=== PATIENT | male | born 1980 | race Caucasian/White ===

== ENCOUNTER 2020-07-29 21:40 | Emergency (ER) | payer BC ==
[2020-07-29 22:06] VITALS: BP 161/106; PULSE 80
--- NOTE | 2020-07-29 22:19 | EDM.PDOC ---
ED HPI GENERAL MEDICAL PROBLEM - General Chief Complaint: ENT Problem Stated Complaint: WISDOM TOOTH REMOVED THROAT AND EAR PAIN Time Seen by Provider: 07/29/20 21:59 Source of Information: Reports: Patient History Limitations: Reports: No Limitations - History of Present Illness INITIAL COMMENTS - FREE TEXT/NARRATIVE: This is a 40-year-old male. He had to lower wisdom teeth and the right upper wisdom tooth removed last week. He was doing okay until last night when he developed lots of chilling and sweating and he developed pain in his left jaw area left ear and throat. He does not have any drainage that he can tell from his surgery and he denies any bad taste in his mouth but he does have a sore throat. He is not certain whether the surgical site is infected or if he is got strep throat. When he took his temp today apparently was about 101 and he still had some chills today as well. He comes to the ER for evaluation. He denies any nausea vomiting or diarrhea denies any cough or congestion. throat Pain Score (Numeric/FACES): 6 - Related Data Allergies Allergy/AdvReac Type Severity Reaction Status Date / Time tide Allergy Rash Uncoded 07/29/20 22:06 Home Meds: Home Meds Acetaminophen/HYDROcodone [[place] 325-5 MG] 1 tab PO Q4H PRN 07/29/20 [History] Hydrocodone/Acetaminophen [Hydrocodone-Acetamin 5-325 mg] 1 each PO Q6H PRN #12 tablet 07/29/20 [Rx] Penicillin V Potassium 500 mg PO Q8HR #21 tab 07/29/20 [Rx] Past Medical History - Past Health History Medical/Surgical History: Denies Medical/Surgical History Gastrointestinal History: Reports: Other (See Below) Other Gastrointestinal History: perianal abcess - Infectious Disease History Infectious Disease History: Reports: Chicken Pox - Past Surgical History Other GI Surgeries/Procedures: butt surgery times 3 Musculoskeletal Surgical History: Reports: Other (See Below) Other Musculoskeletal Surgeries/Procedures:: achilles tendon lengthening bilaterally Social & Family History - Family History Family Medical History: No Pertinent Family History - Tobacco Use Tobacco Use Status *Q: Never Tobacco User - Recreational Drug Use Recreational Drug Use: No ED ROS ENT - Review of Systems Review Of Systems: See Below Constitutional: Reports: Fever, Chills HEENT: Reports: Ear Pain, Throat Pain Respiratory: Denies: Shortness of Breath, Cough Cardiovascular: Denies: Chest Pain Endocrine: Reports: No Symptoms GI/Abdominal: Denies: Abdominal Pain, Nausea, Vomiting : Reports: No Symptoms Musculoskeletal: Reports: No Symptoms Skin: Reports: No Symptoms Neurological: Reports: No Symptoms Psychiatric: Reports: No Symptoms Hematologic/Lymphatic: Reports: No Symptoms ED EXAM, ENT - Physical Exam Exam: See Below Exam Limited By: No Limitations General Appearance: Alert, WD/WN, No Apparent Distress Eye Exam: Bilateral Eye: Normal Inspection Ears: Normal External Exam, Normal Canal, Normal TMs Nose: Normal Inspection Mouth/Throat: Normal Gums, Tonsillar Erythema, Other (The gums where the wisdom tooth were removed in the lower jaw does not appear to be inflamed or swollen I do not see any obvious drainage. The right upper wisdom tooth area appears to be without swelling or drainage.). No: Gum Swelling Head: Normocephalic, Other (When I compare his facial structure he does not appear to have any significant swelling on that left side of the jaw or around the ear area. It is mildly tender on palpation but not exquisitely so. He has some mild lymphadenopathy at the left angle of the jaw but not the right.) Neck: Supple Respiratory/Chest: No Respiratory Distress Back: Full Range of Motion Extremities: Normal Inspection, Normal Range of Motion Neurological: Alert, Oriented Psychiatric: Normal Affect, Normal Mood Skin: Warm, Dry Course - Vital Signs Last Recorded V/S: Last Vital Signs Temp 98.3 F 07/29/20 22:02 Pulse 80 07/29/20 22:02 Resp 18 07/29/20 22:02 BP 161/106 H 07/29/20 22:02 Pulse Ox 91 L 07/29/20 22:02 - Orders/Labs/Meds Orders: Active Orders 24 hr Category Date Time Status cefTRIAXone 1 GM with Lidocaine 1% 2.1 ML IM Med 07/29/20 23:15 Ordered cefTRIAXone [Rocephin] 1 gm Lidocaine 1% [Xylocaine 1%] 2.1 ml IM Q24H Labs: Laboratory Tests 07/29/20 07/29/20 Range/Units 22:20 22:30 WBC 11.64 H (4.23-9.07) K/mm3 RBC 5.05 (4.63-6.08) M/mm3 Hgb 15.2 (13.7-17.5) gm/dl Hct 44.5 (40.1-51.0) % MCV 88.1 (79.0-92.2) fl MCH 30.1 (25.7-32.2) pg MCHC 34.2 (32.2-35.5) g/dl RDW Std Deviation 42.5 (35.1-43.9) fL Plt Count 233 (163-337) K/mm3 MPV 9.4 (9.4-12.3) fl Neut % (Auto) 65.3 (34.0-67.9) % Lymph % (Auto) 18.7 L (21.8-53.1) % [place] % (Auto) 11.8 (5.3-12.2) % Eos % (Auto) 3.3 (0.8-7.0) Baso % (Auto) 0.3 (0.1-1.2) % Neut # (Auto) 7.61 H (1.78-5.38) K/mm3 Lymph # (Auto) 2.18 (1.32-3.57) K/mm3 [place] # (Auto) 1.37 H (0.30-0.82) K/mm3 Eos # (Auto) 0.38 (0.04-0.54) K/mm3 Baso # (Auto) 0.03 (0.01-0.08) K/mm3 Manual Slide Review Normal smear Group A Strep (PCR) Not detected (NOT DETECT) - Re-Assessments/Exams Free Text/Narrative Re-Assessment/Exam: 07/29/20 23:09 I spoke to the patient regarding the mildly elevated white count and the negative strep. He is going out for a Rocephin shot in the ER approach put him on some penicillin VK at home and give him something for pain. Departure - Departure Time of Disposition: 23:10 Disposition: Home, Self-Care 01 Condition: Good Clinical Impression: Dry tooth socket - Discharge Information *PRESCRIPTION DRUG MONITORING PROGRAM REVIEWED*: No *COPY OF PRESCRIPTION DRUG MONITORING REPORT IN PATIENT HSEREEN: No Prescriptions: Hydrocodone/Acetaminophen [Hydrocodone-Acetamin 5-325 mg] 1 each PO Q6H PRN #12 tablet PRN Reason: Pain Penicillin V Potassium 500 mg PO Q8HR #21 tab Instructions: Dental Dry Socket, [id number] Referrals: Bradley Aleman Jr, MD [Primary Care Provider] - Forms: ED Department Discharge Additional Instructions: Get the antibiotics and the pain medication filled tomorrow and start the antibiotics tomorrow evening, continue with liquids and try to avoid any foods that are hard or you have to chew a lot so stick to soft foods and fluids for the next few days, take some Tylenol or ibuprofen as needed for the fever, follow-up with your dentist later next week for recheck, return to the ER if needed Sepsis Event Note (ED) - Evaluation Sepsis Screening Result: No Definite Risk - Focused Exam Vital Signs: Vital Signs Temp Pulse Resp BP Pulse Ox 07/29/20 22:02 98.3 F 80 18 161/106 H 91 L - My Orders Last 24 Hours: My Active Orders 07/29/20 23:15 cefTRIAXone 1 GM with Lidocaine 1% 2.1 ML IM cefTRIAXone [Rocephin] 1 gm Lidocaine 1% [Xylocaine 1%] 2.1 ml IM Q24H - Assessment/Plan Last 24 Hours: My Active Orders 07/29/20 23:15 cefTRIAXone 1 GM with Lidocaine 1% 2.1 ML IM cefTRIAXone [Rocephin] 1 gm Lidocaine 1% [Xylocaine 1%] 2.1 ml IM Q24H
[2020-07-29] MEDS ORDERED: cefTRIAXone 1 GM, Lidocaine 1% 2.1 ML IM SCH ×2 (23:15)
== END 2020-07-29 23:26 | disposition home or self-care (01) ==
LOC: JD.ED 21:40
DX: M27.3 Alveolitis of jaws (principal); Z91.048 Other nonmedicinal substance allergy status
CPT/HCPCS: 36415; 85025; 87651; 96372; 99283; J0696

== ENCOUNTER 2023-02-18 11:30 | Day surgery (SDC) | payer BC ==
[~2023-02-18 11:30] MED LIST: Lidocaine 1% 5 ML VIAL ONE; Propofol 200 MG/20 ML SDV ONE; fentaNYL 100 MCG/2 ML SDV ONE
[2023-02-18] MEDS ORDERED: Lidocaine 1% 30 ML SDV ONE (11:43)
[2023-02-18] MEDS ORDERED: Bupivacaine 0.5% 30 ML SDV ONE (11:43)
[2023-02-18] MEDS ORDERED: Dexmedetomidine 200 MCG/2 ML SDV ONE (11:44)
[2023-02-18] MEDS ORDERED: EPINEPHrine 1 MG/ML 30 ML MDV IRR SCH (11:45)
[2023-02-18] MEDS ORDERED: EPINEPHrine 1 MG/ML SDV ONE (11:48)
[2023-02-18] MEDS ORDERED: Midazolam 1 MG/ML 2 ML SDV ONE (12:22)
[2023-02-18] MEDS ORDERED: Ketamine 200 MG/20 ML MDV ONE (12:30)
[2023-02-18] MEDS ORDERED: ceFAZolin 2 GM Vial ONE (12:33)
[2023-02-18] MEDS ORDERED: Propofol 200 MG/20 ML SDV ONE ×3 (12:47→13:18)
[2023-02-18] MEDS ORDERED: Esmolol 100 MG/10 ML SDV ONE (12:54)
[2023-02-18] MEDS ORDERED: fentaNYL 100 MCG/2 ML SDV ONE (12:58)
[2023-02-18] MEDS ORDERED: Metoprolol Tartrate 5 MG/5 ML SDV ONE (13:04)
[2023-02-18] MEDS ORDERED: Lactated Ringers 1,000 ML IV ONE (13:30)
[2023-02-18] MEDS ORDERED: Acetaminophen/HYDROcodone 325-5 MG Tab PO SCH (14:22)
[2023-02-18] MEDS ORDERED: Sodium Chloride 0.9% 10 ML Syringe FLUSH PRN (14:29)
[2023-02-18] MEDS ORDERED: Lactated Ringers 1,000 ML IV SCH (14:30)
[2023-02-18] MEDS ORDERED: Sodium Chloride 0.9% 10 ML Syringe FLUSH SCH (14:45)
== END 2023-02-18 17:45 | disposition home or self-care (01) ==
LOC: JD.SDS 11:30
PROVIDERS: ATTEND Orthopaedic Surgery
DX: M75.111 Incomplete rotator cuff tear or rupture of right shoulder, not specified as traumatic (principal); M75.21 Bicipital tendinitis, right shoulder; M75.41 Impingement syndrome of right shoulder; M65.811 Other synovitis and tenosynovitis, right shoulder; Z87.891 Personal history of nicotine dependence; Z79.899 Other long term (current) drug therapy
CPT/HCPCS: 29826; 29827; A9270; C1713; J0171; J0690; J2250; J2704; J3010; J3490; J7120; 01630